=== PATIENT | female | born 1995 | race Caucasian/White ===

== ENCOUNTER 2018-11-20 01:29 | Emergency (ER) | payer SELFPAY ==
[2018-11-20 01:31] VITALS: BP 142/126
--- NOTE | 2018-11-20 01:46 | ER Report ---
History and Physical Time Seen By MD: 01:39 Hx. of Stated Complaint: LAW ENFORCEMENT STATE THAT PATIENT WAS INTOXICATED AT [facility] HPI/ROS CHIEF COMPLAINT: intoxication and anxiety HISTORY OF PRESENT ILLNESS: This is a 23 year old female. She has been drinking heavily tonight. Denies any drug use. Intermittently says she is in pain but at the same time crying and asking to call her "mommie". She is not consistent with where she is having pain. There is no report of fall or injury. She will say she has pain in her shoulder and then in her back and then in her abdomen, but then deny pain in these areas in the next few breaths. Extremely anxious. Anxiety seems to surround the fact she is arrested and she should not be. Perseverating on her infantry weapons officer saying she should be fine. Reviewed Nurses Notes: Yes Constitutional Vital Sign - Last 24 Hours 11/20/18 01:31 Temp 97.9 Pulse 134 Resp 22 B/P (MAP) 142/126 Pulse Ox 95 O2 Delivery Room Air Physical Exam General Appearance: Alert. Very anxious having panic attacks. Eyes: Pupils equal and round, with scleral injection. ENT: Normal oral mucosa. Moist mucous membranes. Tympanic membranes are normal. Neck: Neck is supple and non tender. Respiratory: Chest is non tender, lungs are clear to auscultation. Cardiac: regular rate and rhythm Gastrointestinal: Abdomen is soft and no apparent tenderness, bowel sounds normal. Musculoskeletal: Extremities without tenderness. Skin: No rashes or lesions. DIFFERENTIAL DIAGNOSIS: After history and physical exam differential diagnosis was considered for alcohol intoxication and severe anxiety that seems to be surrounding her arrest. Medical Decision Making ED Course/Re-evaluation ED Course Other than her severe anxiety and intoxication, cleared to go to [facility] at this time. Decision to Disposition Date: Nov 20, 2018 Decision to Disposition Time: 01:44 Depart Departure Latest Vital Signs Vital Signs Date Time Temp Pulse Resp B/P (MAP) Pulse Ox O2 Delivery O2 Flow Rate FiO2 11/20/18 01:31 97.9 134 22 142/126 95 Room Air Impression: Primary Impression: Alcohol intoxication Additional Impression: Anxiety Condition: Improved Disposition: HOME OR SELF-CARE Patient Instructions: Alcohol Intoxication (ED), Anxiety (ED) Problem Qualifiers Primary Impression: Alcohol intoxication Complication of substance-induced condition: uncomplicated Qualified Codes: F10.920 - Alcohol use, unspecified with intoxication, uncomplicated [facility] MD Nov 20, 2018 01:46
== END 2018-11-20 01:54 | disposition home or self-care (01) ==
LOC: ER 01:42
DX: F10.920 Alcohol use, unspecified with intoxication, uncomplicated (principal)
CPT/HCPCS: 99281